=== PATIENT | male | born 1990 | race Caucasian/White ===

== ENCOUNTER 2018-07-03 22:46 | Emergency (ER) | payer BC ==
[~2018-07-03] VITALS: Ht 177.8 cm; Wt 108.9 kg
[2018-07-04 00:07] VITALS: BP 163/94
[2018-07-04] MEDS ORDERED: HYDR-3135 PO (00:22)
[2018-07-04] MEDS ORDERED: AMOX875T PO (00:22)
[2018-07-04] MEDS ORDERED: HYDROcodone/APAP 10/325 1 TAB TABLET PO ONE (01:00)
[2018-07-04] MEDS ORDERED: AMOXICILLIN/K CLAV 875/125MG TABLET. PO ONE (01:00)
--- NOTE | 2018-07-04 05:14 | PHYS DOC ---
Past Medical History Past Medical History: Hypertension Past Surgical History: No Surgical History Alcohol Use: Heavy Additional Information: 8-10 beers daily Drug Use: None Adult General Chief Complaint Chief Complaint: OTHER COMPLAINTS HPI HPI Patient is a 28 year old male who presents with L facial swelling , dental pain , radiating to to left ear. Symptom onset several days ago and gradually worsened over the past few days. Patient is working from out of town and does not have a local primary care doctor or dentist. Also reports occasional blood tinged sputum. No trismus, drooling, hoarseness. No other acute symptoms or complaints. [] Review of Systems Review of Systems Review symptoms as per history of present illness. All other systems were reviewed and found to be within normal limits, except as documented in this note. Current Medications Current Medications Current Medications Medications (Trade) Dose Ordered Sig/Talita Start Time Stop Time Status Last Admin Dose Admin Acetaminophen/ Hydrocodone Bitart (Lortab 10/325) 1 tab 1X ONCE 07/04/18 01:00 07/04/18 01:01 DC 07/04/18 00:50 1 TAB Amoxicillin/ Clavulanate Potassium (Augmentin 875/ 125mg) 1 tab 1X ONCE 07/04/18 01:00 07/04/18 01:01 DC 07/04/18 00:50 1 TAB Allergies Allergies Allergies Coded Allergies Type Severity Reaction Last Updated Verified No Known Drug Allergies 07/04/18 No Physical Exam Physical Exam Constitutional: Well developed, well nourished, no acute distress, non-toxic appearance. [] HENT: Normocephalic, subtle, left cheek swelling, no erythema or induration appreciated, bilateral external ears normal, no otorrhea, confusion, oropharynx moist, intraoral swelling, left lower posterior. [] Eyes: PERRLA, EOMI. [] Neck: Normal range of motion, no tenderness, supple, no tenderness. [] Cardiovascular:Heart rate regular rhythm, no murmur [] Lungs & Thorax: Bilateral breath sounds clear to auscultation [] Current Patient Data Vital Signs Vital Signs Date Time Temp Pulse Resp B/P (MAP) Pulse Ox O2 Delivery O2 Flow Rate FiO2 07/04/18 00:50 99 Room Air 07/04/18 00:07 99.0 87 20 163/94 (117) 99.0 EKG EKG [] Radiology/Procedures Radiology/Procedures [] Course & Med Decision Making Course & Med Decision Making Pertinent Labs and Imaging studies reviewed. (See chart for details) [Dental pain, minimal facial swelling, with mucosal irritation. I suspect dental caries with gingival disease. Antibiotics pain medication prescribed. Recommend follow-up with local dentist KAYLA.] Rigoberto Disclaimer Dragon Disclaimer This electronic medical record was generated, in whole or in part, using a voice recognition dictation system. Departure Departure Impression: Primary Impression: Gingivitis Additional Impression: Pain, dental Disposition: HOME, SELF-CARE Condition: GOOD Patient Instructions: Dental Pain, Gingivitis Additional Instructions: Take medications as directed and follow up with a local dentist KAYLA. Scripts Amoxicillin (AMOXICILLIN) 875 Mg Tablet 1 TAB PO BID, #20 TAB Prov: CARYL MALIN DO 07/04/18 Hydrocodone/Apap 10-325 (NORCO 10-325 TABLET) 1 Each Tablet 1 TAB PO Q8HRS PRN for PAIN MDD 6, #10 TAB 0 Refills Prov: CARYL MALIN DO 07/04/18 Problem Qualifiers CARYL MALIN DO Jul 04, 2018 05:14
== END 2018-07-04 00:50 | disposition home or self-care (01) ==
LOC: ER 22:46
DX: K05.10 Chronic gingivitis, plaque induced (principal); K08.89 Other specified disorders of teeth and supporting structures; I10 Essential (primary) hypertension; F10.20 Alcohol dependence, uncomplicated; Y90.9 Presence of alcohol in blood, level not specified
CPT/HCPCS: 99283